=== PATIENT | female | born 1995 | race Caucasian/White ===

== ENCOUNTER 2017-07-18 09:54 | Emergency (ER) | payer BC ==
[~2017-07-18] VITALS: Ht 172.7 cm; Wt 72.9 kg
[2017-07-18 09:59] VITALS: TEMP 36.6; Ht 172.7 cm; Wt 72.9 kg
[2017-07-18] MEDS ORDERED: BCPILLS PO (10:24)
[2017-07-18 10:25] LABS: BASO % 0.4 %; BASO ABS # 0.03 K/uL (0-0.2); COMPLETE YES; EOS % 3.2 %; HEMATOCRIT 43.9 % (37-47); IG% 0.1 %; LYMPH % 30.5 %; LYMPH ABS # 2.39 K/uL (1.2-3.4); MEAN CELL VOLUME 92.6 fL (80-100); MEAN CORPUSCULAR HEMOGLOBIN 30.6 pg (25-34); MEAN PLATELET VOLUME 10.7 fL (7.4-10.4); NEUT % 60.8 %; PLATELET COUNT 329 K/uL (130-400); RED BLOOD COUNT 4.74 M/uL (4.2-5.4); WHITE BLOOD COUNT 7.83 K/uL (4.8-10.8)
[2017-07-18] MEDS ORDERED: SODIUM CHLORIDE 0.9% 1000ML 2,000 ML IV STA (10:34)
[2017-07-18] MEDS ORDERED: ONDANSETRON INJ 2 MG/ML 2 ML VIAL IV STA (10:34)
[2017-07-18] MEDS ORDERED: KETOROLAC TROMETHAMINE 30 MG/ML VIAL IV STA (10:34)
[2017-07-18 10:43] LABS: BUN/CREATININE RATIO 9.1 (10-20); CALCIUM 9.3 mg/dl (8.5-10.1); CREATININE 0.75 mg/dl (0.60-1.20); POTASSIUM 3.9 mmol/L (3.5-5.1)
[2017-07-18 10:46] LABS: ALB/GLOB RATIO 0.8 (0.9-2)
--- NOTE | 2017-07-18 14:04 | DIAGNOSTIC IMAGING REPORT ---
ABDOMEN 2VIEW W/PA CHEST RTN HISTORY: 22 years-old Female abd pain acute left sided abdominal pain. COMPARISON: Chest radiograph 09/04/2014. TECHNIQUE: Frontal view the chest with erect and supine views of the abdomen. FINDINGS: Cardiomediastinal and hilar silhouettes are within normal limits. There is no pneumothorax, pleural effusion, focal airspace consolidation or overt pulmonary edema. The bones of the chest are grossly intact. No pneumoperitoneum on the upright projection. The bowel gas pattern is nonobstructive. There is moderate volume of formed stool throughout the colon. No urolithiasis or organomegaly. There is mild convex left curvature of the mid lumbar spine, 10 degrees. IMPRESSION: 1. No acute cardiopulmonary process. 2. Nonobstructive bowel gas pattern without pneumoperitoneum. 3. Moderate volume of formed colonic stool. The above report was generated using voice recognition software. It may contain grammatical, syntax or spelling errors. Electronically signed by: Jose Alfredo Godwin M.D. 07/18/2017 2:03 PM Dictated Date/Time: 07/18/2017 2:01 PM
[2017-07-18 15:05] LABS: URINE APPEARANCE CLEAR (CLEAR); URINE COLOR DK YELLOW; URINE EPITHELIAL CELL AUTO >30 /lpf (0-5); URINE NITRITE NEG (NEG); URINE PH 5.5 (4.5-7.5); URINE SPECIFIC GRAVITY 1.022 (1.000-1.030); UROBILINOGEN NEG (NEG); ZZUR CULT IF INDIC CLEAN CATCH NO
[2017-07-18 15:11] LABS: MANUAL MICROSCOPIC REQUIRED? NO; REVIEW REQ? YES
[2017-07-18 15:12] LABS: URINE BILIRUBIN NEG (NEG)
[2017-07-18 16:06] VITALS: BP 101/55; PULSE 78; O2SAT 98
--- NOTE | 2017-07-18 16:43 | EMERGENCY ROOM VISIT NOTE ---
History Report prepared by Julio: Amanda Harris Under the Supervision of: Kristina DennisO. First contact with patient: 10:21 Chief Complaint: FLU LIKE SX Stated Complaint: FLU LIKE SX History of Present Illness The patient is a 22 year old female who presents to the Emergency Room with complaints of worsening flu-like symptoms for the past week. Her symptoms began with generalized body aches. She then developed nausea and a headache 4 days ago. The next day she went to [facility] for evaluation. She was diagnosed with a UTI and placed on Bactrim, despite not having an urinary symptoms. She denies any dysuria or increased frequency or urgency. She states that she is feeling worse after starting the antibiotics but her back pain has resolved. The patient developed bilateral side pain two days ago. She has continued to have nausea and a headache. She states that her headache began gradually and gradually worsened. She rates her current pain as a 7/10 in severity. Pt denies numbness, weakness, changes in vision, rhinorrhea, cough, sore throat, fevers, chest pain, shortness of breath, vomiting, diarrhea, and melena. It has been 4 days since her last bowel movement, which she states is normal for her. Her LNMP was 3-4 weeks ago. Her vaccinations are up to date. Source of History: patient Onset: 1 week ago Position: other (global) Symptom Intensity: 7/10 Quality: other (flu-like) Timing: worsening Associated Symptoms: + headache, + nausea, + abdominal pain, No fevers, No sorethroat, No cough, No chest pain, No SOB, No vomiting, No melena, No diarrhea , No urinary symptoms, No weakness, No numbness Note: Pt notes generalized body aches. Review of Systems See HPI for pertinent positives & negatives. A total of 10 systems reviewed and were otherwise negative. Past Medical & Surgical Medical Problems: (1) Pneumonia Surgical Problems: (1) Hx of tonsillectomy Family History Patient reports no known family medical history. Social History Smoking Status: Never Smoker Smokeless Tobacco Use: No Alcohol Use: occasionally Marital Status: single Housing Status: lives with friends Occupation Status: [employer] student Current/Historical Medications Scheduled Control Pills ( Control Pills), 1 TAB PO DAILY Allergies Coded Allergies: No Known Allergies (Unverified , 07/18/17) Physical Exam Vital Signs Date Time Temp Pulse Resp B/P (MAP) Pulse Ox O2 Delivery O2 Flow Rate FiO2 07/18/17 16:06 78 18 101/55 98 07/18/17 14:09 72 17 101/55 97 Room Air 07/18/17 12:04 73 18 101/49 97 07/18/17 09:59 36.6 103 20 136/90 97 Room Air Physical Exam GENERAL: alert, well appearing, well nourished, no distress, non-toxic EYE EXAM: normal conjunctiva, PERRL and EOM's grossly intact EARS: TMs clear bilaterally. OROPHARYNX: no exudate, no erythema, lips, buccal mucosa, and tongue normal and mucous membranes are moist NECK: supple, no nuchal rigidity, no adenopathy. Negative Brudzinski's Sign, minimal tenderness at the base of the OA joint on palpation. LUNGS: Clear to auscultation. Normal chest wall mechanics HEART: no murmurs, S1 normal and S2 normal ABDOMEN: abdomen soft, non-tender, normo-active bowel sounds, no masses, no rebound or guarding. BACK: Back is symmetrical on inspection and there is no deformity, no midline tenderness, no CVA tenderness. SKIN: no rashes and no bruising UPPER EXTREMITIES: upper extremities are grossly normal. LOWER EXTREMITIES: No pitting edema. NEURO EXAM: Normal sensorium, cranial nerves II-XII grossly intact, normal speech, no gross weakness of arms, no gross weakness of legs. No drift. Finger to nose intact. Gross sensation intact. Medical Decision & Procedures ER Provider Diagnostic Interpretation: Radiology results as stated below per my review and the radiologist's interpretation: ABDOMEN 2VIEW W/PA CHEST RTN HISTORY: 22 years-old Female abd pain acute left sided abdominal pain. COMPARISON: Chest radiograph 09/04/2014. TECHNIQUE: Frontal view the chest with erect and supine views of the abdomen. FINDINGS: Cardiomediastinal and hilar silhouettes are within normal limits. There is no pneumothorax, pleural effusion, focal airspace consolidation or overt pulmonary edema. The bones of the chest are grossly intact. No pneumoperitoneum on the upright projection. The bowel gas pattern is nonobstructive. There is moderate volume of formed stool throughout the colon. No urolithiasis or organomegaly. There is mild convex left curvature of the mid lumbar spine, 10 degrees. IMPRESSION: 1. No acute cardiopulmonary process. 2. Nonobstructive bowel gas pattern without pneumoperitoneum. 3. Moderate volume of formed colonic stool. The above report was generated using voice recognition software. It may contain grammatical, syntax or spelling errors. Electronically signed by: Jose Alfredo Godwin M.D. 07/18/2017 2:03 PM Dictated Date/Time: 07/18/2017 2:01 PM Laboratory Results 07/18/17 10:10 Red Blood Count 4.74, Mean Corpuscular Volume 92.6, Mean Corpuscular Hemoglobin 30.6, Mean Corpuscular Hemoglobin Concent 33.0, Mean Platelet Volume 10.7, Neutrophils (%) (Auto) 60.8, Lymphocytes (%) (Auto) 30.5, Monocytes (%) (Auto) 5.0, Eosinophils (%) (Auto) 3.2, Basophils (%) (Auto) 0.4, Neutrophils # (Auto) 4.76, Lymphocytes # (Auto) 2.39, Monocytes # (Auto) 0.39, Eosinophils # (Auto) 0.25, Basophils # (Auto) 0.03 07/18/17 10:10 Test 07/18/17 10:04 07/18/17 10:10 07/18/17 14:35 Influenza Type A Antigen Neg for Influ A (NEG) Influenza Type B Antigen Neg for Influ B (NEG) White Blood Count 7.83 K/uL (4.8-10.8) Red Blood Count 4.74 M/uL (4.2-5.4) Hemoglobin 14.5 g/dL (12.0-16.0) Hematocrit 43.9 % (37-47) Mean Corpuscular Volume 92.6 fL (80-100) Mean Corpuscular Hemoglobin 30.6 pg (25-34) Mean Corpuscular Hemoglobin Concent 33.0 g/dl (32-36) Platelet Count 329 K/uL (130-400) Mean Platelet Volume 10.7 fL (7.4-10.4) Neutrophils (%) (Auto) 60.8 % Lymphocytes (%) (Auto) 30.5 % Monocytes (%) (Auto) 5.0 % Eosinophils (%) (Auto) 3.2 % Basophils (%) (Auto) 0.4 % Neutrophils # (Auto) 4.76 K/uL (1.4-6.5) Lymphocytes # (Auto) 2.39 K/uL (1.2-3.4) Monocytes # (Auto) 0.39 K/uL (0.11-0.59) Eosinophils # (Auto) 0.25 K/uL (0-0.5) Basophils # (Auto) 0.03 K/uL (0-0.2) RDW Standard Deviation 42.0 fL (36.4-46.3) RDW Coefficient of Variation 12.4 % (11.5-14.5) Immature Granulocyte % (Auto) 0.1 % Immature Granulocyte # (Auto) 0.01 K/uL (0.00-0.02) Anion Gap 7.0 mmol/L (3-11) Est Creatinine Clear Calc Drug Dose 119.7 ml/min Estimated GFR () 132.1 Estimated GFR (Non- 113.9 BUN/Creatinine Ratio 9.1 (10-20) Calcium Level 9.3 mg/dl (8.5-10.1) Total Bilirubin 0.3 mg/dl (0.2-1) Aspartate Amino Transf (AST/SGOT) 14 U/L (15-37) Alanine Aminotransferase (ALT/SGPT) 15 U/L (12-78) Alkaline Phosphatase 80 U/L (45-117) Total Protein 7.8 gm/dl (6.4-8.2) Albumin 3.5 gm/dl (3.4-5.0) Globulin 4.3 gm/dl (2.5-4.0) Albumin/Globulin Ratio 0.8 (0.9-2) Lipase 147 U/L (73-393) Urine Color DK YELLOW Urine Appearance CLEAR (CLEAR) Urine pH 5.5 (4.5-7.5) Urine Specific [place] 1.022 (1.000-1.030) Urine Protein NEG (NEG) Urine Glucose (UA) NEG (NEG) Urine Ketones NEG (NEG) Urine Occult Blood NEG (NEG) Urine Nitrite NEG (NEG) Urine Bilirubin NEG (NEG) Urine Urobilinogen NEG (NEG) Urine Leukocyte Esterase TRACE (NEG) Urine WBC (Auto) 1-5 /hpf (0-5) Urine RBC (Auto) 0-4 /hpf (0-4) Urine Hyaline Casts (Auto) 0 /lpf (0-5) Urine Epithelial Cells (Auto) >30 /lpf (0-5) Urine Bacteria (Auto) NEG (NEG) Urine Renal Epithelial Cells 0-5 /lpf (0-5) Urine Test NEG (NEG) Laboratory results per my review. Medications Administered Medications (Trade) Dose Ordered Sig/Amador Route Start Time Stop Time Status Last Admin Dose Admin Sodium Chloride 2,000 ml @ 999 mls/hr Q2H1M STAT IV 07/18/17 10:34 07/18/17 12:34 DC 07/18/17 11:03 999 MLS/HR Ketorolac Tromethamine (Toradol Inj) 30 mg NOW STAT IV 07/18/17 10:34 07/18/17 10:35 DC 07/18/17 10:34 30 MG Ondansetron HCl (Zofran Inj) 4 mg NOW STAT IV 07/18/17 10:34 07/18/17 10:35 DC 07/18/17 11:03 4 MG ED Course ED COURSE: Vital signs were reviewed and showed tachycardic, hypertensive. The patients medical record was reviewed The above diagnostic studies were performed and reviewed. ED treatments and interventions as stated above. 1025: The patient was evaluated in room C10. A complete history and physical examination was performed. 1034: Zofran 4 mg IV, Toradol 30 mg IV, NSS 2000 ml @ 999 mls/hr IV 1233: I reassessed the patient and she is feeling the same. 1538: Upon reevaluation, the patient is feeling better and resting comfortably. I discussed my findings with the patient and she understands and agrees with the treatment plan. Based on the patients age, coexisting illnesses, exam and lab findings the decision to treat as an outpatient was made. The patient remained stable while under my care. The patient appeared well at the time of discharge. Medical Decision Differential diagnoses includes but is not limited to gastritis, peptic ulcer disease, GERD, gallbladder disease, pancreatitis, small bowel obstruction, acute coronary syndrome, pericarditis, ischemic bowel, irritable bowel disease, irritable bowel syndrome, appendicitis, diverticulitis, malignancy, hernia, urinary tract infection, torsion, /ectopic , perforation, trauma, infectious. Patient is a 22-year-old female who presents to the ER for initially abdominal pain associated with nausea which started this past Monday. Monday she started with a mild headache. She also complains of back pain which is now resolved. She has minimal pain in her left lower quadrant on exam. Vitals are unremarkable. On exam she has no signs of meningitis or encephalitis. No nuchal rigidity. Negative Brudzinski. Afebrile. CBC all BMP, LFTs, bilirubin and lipase was unremarkable. UA was clean although she's been on Bactrim for the past several days. was negative. Chest x-ray shows no focal infiltrate. Transient serious shows a large amount of stool. Without having her previous UA and fever that she likely a left-sided pyelonephritis which is now resolved. She had no hematuria to suggest a stone. She does not examine like a kidney stone. Her abdominal exam was completely benign. No signs peritonitis. I favor her symptoms are likely infectious but improving. She was up-to-date at bedside. She is discharged to follow up with PCP. Discussed with Pt concerning signs and symptoms to watch out for. Pt was instructed to follow up with their PCP and discussed with the patient their option to return to the ED at anytime for persistent or worsening symptoms. The appropriate anticipatory guidance and out-patient management, including indications for return to the emergency department, were explained at length to the patient and understood. Medication Reconcilliation Current Medication List: was personally reviewed by me Blood Pressure Screening Patient's blood pressure: Elevated blood pressure Blood pressure disposition: Elevated BP felt to be situational Impression Primary Impression: Abdominal pain Scribe Attestation The scribe's documentation has been prepared under my direction and personally reviewed by me in its entirety. I confirm that the note above accurately reflects all work, treatment, procedures, and medical decision making performed by me. Departure Information Dispostion Home / Self-Care Referrals No Doctor, Assigned (PCP) Forms HOME CARE DOCUMENTATION FORM, IMPORTANT VISIT INFORMATION Patient Instructions Abdominal Pain - [facility], [facility] Additional Instructions Please follow up with your primary care doctor or if you are a student, [facility] with in the next 24 hours. Any worsening of your symptoms, please return to the ED immediately. This includes any fevers greater than 100.4, worsening pain, chest pain, shortness breath, persistent nausea, vomiting, unable to eat or drink, or any other concerning signs or symptoms from your standpoint. Please continue antibiotics as prescribed. Problem Qualifiers Primary Impression: Abdominal pain Abdominal location: generalized Qualified Codes: R10.84 - Generalized abdominal pain
== END 2017-07-18 16:08 | disposition home or self-care (01) ==
LOC: C.EDB 09:55 → C.EDC 16:08
DX: R10.9 Unspecified abdominal pain (principal); R52 Pain, unspecified; M54.9 Dorsalgia, unspecified; Z87.442 Personal history of urinary calculi; Z98.890 Other specified postprocedural states